=== PATIENT | male | born 1955 | race Caucasian/White ===

== ENCOUNTER 2019-07-10 14:15 | Outpatient (CLI) | payer OTHER, SELFPAY ==
[2019-07-10 14:27] LABS: Basophils Percent Auto 0.2 % (0.2-1.2); Eosinophils Absolute Auto 0.1 K/mm3 (0-0.3); Hematocrit 41.3 % (42.0-52.0); Hemoglobin 13.5 g/dL (14.0-18.0); Immature Granulocyte Absolute 0.01 K/mm3 (0.00-0.031); Immature Granulocyte Percent A 0.2 % (0-0.5); Lymphocytes Absolute Auto 1.88 K/mm3 (0.9-3.2); Lymphocytes Percent Auto 38.1 % (18.3-44.2); Mean Corpuscular HGB Conc 32.7 g/dl (32-36); Mean Corpuscular Hemoglobin 30.8 pg (26-34); Mean Corpuscular Volume 94.3 fl (80-100); Monocytes Absolute Auto 0.3 K/mm3 (0.1-0.6); Monocytes Percent Auto 6.9 % (2.6-8.5); Neutrophils Absolute Auto 2.6 K/mm3 (1.3-6.7); Neutrophils Percent Auto 53.6 % (45.5-73.1); Platelet Count Result 203 k/mm3 (150-375); Red Blood Count 4.38 M/mm3 (4.6-6.20); Red Cell Distribution Width 12.9 % (11.5-14.5); White Blood Count 4.9 K/mm3 (4.5-10.0)
[2019-07-10 16:39] LABS: Alanine Aminotransferase 30 U/L (4-50); Albumin Level 4.8 g/dL (3.5-5.1); Alkaline Phosphatase 63 U/L (38-126); Aspartate Amino Transferase 67 U/L (17-59); Bilirubin,Total 0.5 mg/dL (0.2-1.3); Blood Urea Nitrogen 16 mg/dL (9-20); Calcium 9.6 mg/dL (8.4-10.2); Carbon Dioxide 27 mmol/L (22-30); Chloride 101 mmol/L (98-107); Estimated Glomerular Filt Rate > 60; Glucose 103 mg/dL (75-110); Potassium 4.3 mmol/L (3.4-5.0); Sodium 137 mmol/L (137-145)
== END 2019-07-10 14:16 | disposition home or self-care (01) ==
LOC: ANHLAB 14:17
PROVIDERS: Visit Provider Internal Medicine Hematology & Oncology
DX: K31.89 Other diseases of stomach and duodenum (principal)
CPT/HCPCS: 36415; 80053; 85025

== ENCOUNTER 2019-07-17 11:17 | Outpatient (CLI) | payer OTHER, SELFPAY ==
--- NOTE | ~2019-07-17 | CT_ITS ---
EXAMINATION: CT chest abdomen pelvis w con EXAM DATE: 07/17/2019 11:58 INDICATION: Non-Hodgkin's lymphoma. Mesenteric lymphadenopathy. Patchy airspace disease. Both finding s on prior PET/CT exam from 12/13/2018. TECHNIQUE: Spiral CT of the chest, abdomen and pelvis was performed following intravenous injection o f 100 mL Omnipaque 350. Axial, coronal and sagittal images were reviewed. Coronal maximum intensity pixel images of chest reviewed. The dose-length product (DLP) for this examination was 1336.75 mGy- cm. The exposure was tailored according to patient size (auto mA exposure control), and iterative re construction (ASIR) was used as additional dose reduction technique. Comparison is made to prior exam ination from 12/13/2018. FINDINGS: CHEST: Previous examination had multiple regions of patchy groundglass attenuation bilaterally. Thes e are still evident but have a more chronic appearance today, some interlobular septal thickening in these regions and less groundglass density, better aeration. This is most consistent with chronic non specific inflammatory process. There are no pleural or pericardial effusions. Tracheobronchial alexandre e is patent. There are increased number of visible axillary and mediastinal lymph nodes, but none a re pathologically enlarged and there is no appreciable change compared to prior study. There is no p neumothorax. Heart normal in size. There is mild coronary arterial calcification, arterial sclero sis. ABDOMEN PELVIS: Again there is mild dyllan mesentery appearance with scattered small lymph nodes which are nonspecific and unchanged. The liver, spleen, adrenal glands and pancreas are unremarkable. Ga llbladder is unremarkable. No biliary obstruction. Portal and splenic veins are patent. Kidneys en volodymyr symmetrically. There is no hydronephrosis. The prostate is unremarkable. Small left inguinal fat-containing hernia. The bladder is unremarkable. There is no retroperitoneal or pelvic lymphade nopathy. There is moderate scattered arteriosclerotic disease. The right common and superficial femoral arteries appear to be either completely occluded or nearly c ompletely occluded, with some prominent profunda collateralization which could be the major supply to the leg. Congenitally short appendix or surgical stump unremarkable. There is small sliding gastroesophageal hiatal hernia. There is expected amount of colonic stool. No free intraperitoneal gas. There are no osteoblastic or osteolytic lesions identified. IMPRESSION: 1. Stable increased number of visible but normal sized mesenteric and thoracic lymph nodes. 2. Change in previously seen scattered lung groundglass opacities with more chronic appearance today . 3. 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 Consider vascular consu lt. Reviewed, dictated and finalized at location A. IMPRESSION: 1. Stable increased number of visible but normal sized mesenteric and thoracic lymph nodes. 2. Change in previously seen scattered lung groundglass opacities with more ch ronic appearance today. 3. 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 C onsider vascular consult.
== END 2019-07-17 11:18 | disposition home or self-care (01) ==
PROVIDERS: Visit Provider Internal Medicine Hematology & Oncology
DX: K31.89 Other diseases of stomach and duodenum (principal); R91.8 Other nonspecific abnormal finding of lung field
CPT/HCPCS: 71260; 74177; Q9967